=== PATIENT | female | born 1955 | race Caucasian/White ===

== ENCOUNTER → 2016-11-09 | Outpatient (CLI) | payer BC ==
--- NOTE | 2016-11-11 08:52 | MM ---
Reason for exam: screening (asymptomatic). Last mammogram was performed 2 years and 8 months ago. History: Patient is postmenopausal. Took estrogen for 1 year 6 months beginning at age 37. Physical Findings: A clinical breast exam by your physician is recommended on an annual basis and results should be correlated with mammographic findings. MG Screening Mammo w CAD Bilateral CC and MLO view(s) were taken. Prior study comparison: March 03, 2014, bilateral MG screening mammo w CAD. March 01, 2013, bilateral digital screening mammo w/CAD. September 19, 2011, bilateral digital screening mammo w/CAD. There are scattered fibroglandular densities. No significant changes when compared with prior studies. ASSESSMENT: Negative, BI-RAD 1 RECOMMENDATION: Routine screening mammogram of both breasts in 1 year.
== END | disposition home or self-care (01) ==
LOC: RADMAMWWP 16:17
PROVIDERS: ATTEND Obstetrics & Gynecology
DX: Z12.31 Encounter for screening mammogram for malignant neoplasm of breast (principal)

== ENCOUNTER 2017-11-22 20:22 | Emergency (ER) | payer BC ==
[2017-11-22] MEDS ORDERED: HYDROcodone/APAP 7.5-325MG 1 EACH TAB PO ONE (20:36)
[2017-11-22] MEDS ORDERED: LIDOCAINE 1% INJ 10MG/ML (20 ML MDV) SQ ONE (20:36)
--- NOTE | 2017-11-22 20:42 | ED ---
Lower Extremity Injury HPI - General Chief Complaint: Extremity Injury, Lower Stated Complaint: Toe Pain Time Seen by Provider: 11/22/17 20:32 Source: patient, family, RN notes reviewed Mode of arrival: wheelchair Limitations: no limitations - History of Present Illness Initial Comments: This is a 62 yo female with presents today for cc of left 3rd toe deformity. Pt states that she was seen by the wound clinic earlier and told she was no supposed to weight bear on the right leg due to a recurring wound. Pt was then walking using the crutches at 8:15 when she began to lost her balance, she then used accidentally kicked the crutches with 3rd digit of the left foot causing immediately deformity laterally. Pt states they immediately got into the car and she was brought to the ER by her . pt admits to pain in the right third toe and tingling. Pt denies loss of sensation, but stated that she has decreased balance loss of sensation. - Related Data Home Medications Medication Instructions Recorded Confirmed Acetaminophen [Tylenol] 2 tab PO QID 11/17/17 11/22/17 Ascorbic Acid [Vitamin C with Jessica 2 tab PO DAILY 11/17/17 11/22/17 Hips] Cephalexin [Keflex] 1 cap PO QID 11/17/17 11/22/17 Cholecalciferol [Vitamin D3] 4 tab PO DAILY 11/17/17 11/22/17 Cyanocobalamin (Vitamin B-12) 2 tab PO DAILY 11/17/17 11/22/17 [Vitamin B12] Ergocalciferol (Vitamin D2) 1 cap PO WEEKLY 11/17/17 11/22/17 [Vitamin D2] Famotidine 2 tab PO DAILY 11/17/17 11/22/17 Ibuprofen [Motrin Ib] 3 tab PO TID 11/17/17 11/22/17 Levothyroxine Sodium [Synthroid] 1 tab PO DAILY 11/17/17 11/22/17 Magnesium Gluconate [Magonate] 2 tab PO DAILY 11/17/17 11/22/17 traZODone HCL 2 tab PO HS 11/17/17 11/22/17 Previous Rx's Medication Instructions Recorded HYDROcodone/APAP 7.5-325MG [[place] 1 tab PO Q6HR PRN 1 Days #4 tab 11/22/17 7.5-325] Allergies Allergy/AdvReac Type Severity Reaction Status Date / Time No Known Allergies Allergy Verified 11/22/17 20:32 Review of Systems ROS Statement: Those systems with pertinent positive or pertinent negative responses have been documented in the HPI. ROS Other: All systems not noted in ROS Statement are negative. Past Medical History Past Medical History: GERD/Reflux, Thyroid Disorder History of Any Multi-Drug Resistant Organisms: None Reported Past Surgical History: Adenoidectomy, Appendectomy, Joint Replacement, Tonsillectomy Additional Past Surgical History / Comment(s): right knee replacement 2000 Past Psychological History: No Psychological Hx Reported Smoking Status: Former smoker Past Alcohol Use History: Occasional Past Drug Use History: None Reported - Past Family History Father Family Medical History: Myocardial Infarction ([place]) Mother Family Medical History: Myocardial Infarction ([place]) General Exam - General Exam Comments Initial Comments: General: The patient is awake and alert, in no distress, and does not appear acutely ill. Eye: Pupils are equal, round and reactive to light, extra-ocular movements are intact. No nystagmus. There is normal conjunctiva bilaterally. No signs of icterus. Ears, nose, mouth and throat: There are moist mucous membranes and no oral lesions. Cardiovascular: There is a regular rate and rhythm. No murmur, rub or gallop is appreciated. Respiratory: Lungs are clear to auscultation, respirations are non-labored, breath sounds are equal. No wheezes, stridor, rales, or rhonchi. Musculoskeletal:s Gross deformity to the . Strength 5/5. Sensation intact. Pulses equal bilaterally 2+. Neurological: A&O x 3. CN II-XII intact, There are no obvious motor or sensory deficits. Coordination appears grossly intact. Speech is normal. Skin: Skin is warm and dry and no rashes or lesions are noted. Psychiatric: Cooperative, appropriate mood & affect, normal judgment. Limitations: no limitations Course Vital Signs 11/22/17 11/22/17 20:29 22:31 Temperature 98.2 F 97 F L Pulse Rate 89 80 Respiratory 20 18 Rate Blood Pressure 177/91 138/79 O2 Sat by Pulse 99 97 Oximetry Medical Decision Making - Medical Decision Making XR obtained of the right toes, revealing left third digit proximal phalanx displaced fracture, no dislocation. Pt was given norco for pain. Nerve block was performed and a closed reduction was performed. Pt tolerated procedure well. Repeat XR revealed satisfactory reduction. Pt neurovascularly intact. Compartments are soft and compressible. Toe eulalia taped to the 2nd digit of the left foot. Pt given disc of XR for orthopedic f/u tomorrow. Pt was instructed to call first thing in the morning for appointment with Dr. Griffin she verbalized understanding. Fracture may need surgical intervention, on nonemergenct basis. Pt given 4 tabs of norco for pain mgmt, she denied use of opiods, muscle relaxants or benzos at home and opioid start talking shit was discussed in great detail. pt understood risks and still wanted the rx for pain as needed. Pt d/c in stable condition after the case was discussed in detail with Dr. Stahl who reviewed XR in person and evaluated pt in person. Disposition Clinical Impression: Closed fracture of third toe of left foot Disposition: HOME SELF-CARE Condition: Good Instructions: Toe Fracture (ED) Additional Instructions: Please use medication as discussed. Please follow-up with orthopedic surgery in 1-2 days. Please return to emergency room if the symptoms increase or worsen or for any other concerns. Prescriptions: HYDROcodone/APAP 7.5-325MG [[place] 7.5-325] 1 tab PO Q6HR PRN 1 Days #4 tab PRN Reason: Pain Is patient prescribed a controlled substance at d/c from ED?: No Referrals: Ellis Martinez MD [Primary Care Provider] - 1-2 days Taj Anderson MD [STAFF PHYSICIAN] - 1-2 days Time of Disposition: 22:31
--- NOTE | 2017-11-22 21:12 | XR ---
EXAMINATION TYPE: XR foot complete LT DATE OF EXAM: 11/22/2017 COMPARISON: NONE HISTORY: Foot injury TECHNIQUE: 4 views FINDINGS: There is a fracture of the head of the proximal phalanx of the third toe. There is some flako berry deformity of the third toe. There is no dislocation. IMPRESSION: Angulated fracture of the proximal phalanx of the middle toe.
--- NOTE | 2017-11-22 22:10 | XR ---
EXAMINATION TYPE: XR toes LT DATE OF EXAM: 11/22/2017 COMPARISON: NONE HISTORY: Postreduction TECHNIQUE: 2 views FINDINGS: There is transverse fracture across the head of the proximal phalanx of the third toe. Ther e is significant improved alignment and apposition of the fragments compared to first exam. IMPRESSION: Satisfactory reduction of the third toe fracture.
[2017-11-22 22:32] VITALS: BP 138/79; PULSE 80; RESP 18; TEMP 97
--- NOTE | 2017-11-23 07:27 | CDI ---
Documentation Clarification OP Dear JACQUELINE Avalos/ Efren Oneill MD Please do addendum to ED report for missing procedure note of toe reduction performed. Thank you, Teo Britton Hardware Sales Assistant If you have any questions, please contact [employer] at [phone] [facility]
== END 2017-11-22 22:42 | disposition home or self-care (01) ==
LOC: EC 20:22
DX: S92.512A Displaced fracture of proximal phalanx of left lesser toe(s), initial encounter for closed fracture (principal); K21.9 Gastro-esophageal reflux disease without esophagitis; E07.9 Disorder of thyroid, unspecified; Z96.651 Presence of right artificial knee joint; Z87.891 Personal history of nicotine dependence; Z79.1 Long term (current) use of non-steroidal anti-inflammatories (NSAID); Z79.899 Other long term (current) drug therapy; W22.8XXA Striking against or struck by other objects, initial encounter; Y92.009 Unspecified place in unspecified non-institutional (private) residence as the place of occurrence of the external cause
CPT/HCPCS: 73630; 73660; 99283; 28515; J2001

== ENCOUNTER → 2017-12-28 | Outpatient (CLI) | payer BC ==
--- NOTE | 2017-12-29 12:14 | MM ---
Reason for exam: screening (asymptomatic). Last mammogram was performed 1 year and 2 months ago. History: Patient is postmenopausal. Took estrogen for 1 year 6 months beginning at age 37. Physical Findings: A clinical breast exam by your physician is recommended on an annual basis and results should be correlated with mammographic findings. MG Screening Mammo w CAD Bilateral CC and MLO view(s) were taken. Prior study comparison: November 09, 2016, bilateral MG screening mammo w CAD. March 03, 2014, bilateral MG screening mammo w CAD. The breast tissue is almost entirely fat. No significant changes when compared with prior studies. ASSESSMENT: Benign, BI-RAD 2 RECOMMENDATION: Routine screening mammogram of both breasts in 1 year.
== END | disposition home or self-care (01) ==
LOC: RADMAMWWP 15:23
PROVIDERS: ATTEND Obstetrics & Gynecology
DX: Z12.31 Encounter for screening mammogram for malignant neoplasm of breast (principal)
CPT/HCPCS: 77067

== ENCOUNTER → 2019-02-08 | Outpatient (CLI) | payer BC ==
--- NOTE | 2019-02-12 10:08 | MM ---
Reason for exam: screening (asymptomatic). Last mammogram was performed 1 year and 1 month ago. History: Patient is postmenopausal. Took estrogen for 1 year 6 months beginning at age 37. Physical Findings: A clinical breast exam by your physician is recommended on an annual basis and results should be correlated with mammographic findings. MG Screening Mammo w CAD Bilateral CC and MLO view(s) were taken. Prior study comparison: December 28, 2017, bilateral MG screening mammo w CAD. November 09, 2016, bilateral MG screening mammo w CAD. There are scattered fibroglandular densities. No significant changes when compared with prior studies. ASSESSMENT: Negative, BI-RAD 1 RECOMMENDATION: Routine screening mammogram of both breasts in 1 year.
== END | disposition home or self-care (01) ==
LOC: RADMAMWWP 16:29
PROVIDERS: ATTEND Obstetrics & Gynecology
DX: Z12.31 Encounter for screening mammogram for malignant neoplasm of breast (principal)
CPT/HCPCS: 77067

== ENCOUNTER → 2019-04-17 | Outpatient (CLI) | payer BC ==
--- NOTE | 2019-04-17 08:54 | CT ---
EXAMINATION TYPE: CT lower leg RT w con DATE OF EXAM: 04/17/2019 COMPARISON: Right leg x-ray March 29, 2019 HISTORY: Staph infection Rt lower leg, not healing, leg abscess per order CT DLP: 837.1 mGycm Automated exposure control for dose reduction was used. CONTRAST: Performed with IV Contrast, patient injected with 100 mL of Isovue 300. FINDINGS: Moderate to severe diffuse subcutaneous edema begins mid leg level extending to distal leg and ankle level. There is focal loss of normal fat plane anteriorly near image 114 with low dense area suspecte d fluid and multiple rounded hypodensities could reflect phleboliths or soft tissue foreign bodies. T here is no well-formed drainable fluid collection or abscess identified. There is additional area of more focal fluid posterior to the lateral malleolus near image 127 but it remains ill-defined. Focal fluid extends to the skin surface at both levels. Incidental subchondral cystic change at the subtalar joint. Mild to moderate narrowing and spurring a t the caval navicular joint. Partial visualization of metallic hardware from total knee arthroplasty. Ankle mortise symmetry is preserved. Lisfranc joints are maintained. IMPRESSION: Moderate to severe diffuse subcutaneous edema with areas of focal ill-defined fluid exten ding to skin surface. No well-formed drainable abscess. No obvious large focal ulceration.
== END | disposition home or self-care (01) ==
LOC: RADCTMAIN 07:05
PROVIDERS: ATTEND Internal Medicine Infectious Disease
DX: R60.0 Localized edema (principal); J30.1 Allergic rhinitis due to pollen
CPT/HCPCS: 73701; Q9967

== ENCOUNTER → 2019-11-18 | Outpatient (CLI) | payer BC ==
[~2019-11-18] MED LIST: AMINOPHYLLINE 500 MG/20 ML VIAL IV ONE; REGADENOSON 0.4 MG/5 ML SYRINGE IV ONE
--- NOTE | 2019-11-18 13:39 | EST ---
EXERCISE STRESS AGE: 64 SEX: F HT: 67" WT: 260 lbs. PROTOCOL: Lexiscan Cardiolite STAGE: DURATION OF EXERCISE: HEART RATE REST: 72 BLOOD PRESSURE REST: 167/85 MAXIMUM HEART RATE ACHIEVED: 94 MAXIMUM BLOOD PRESSURE: 161/85 85% MPHR: 134 100% MPHR: 158 METS: INDICATIONS: Abnormal EKG. CLINICAL INFORMATION: Baseline rhythm is sinus mechanism, rate is 72, normal axis and intervals, normal echocardiogram. Baseline blood pressure 167/81 mmHg. Patient received an injection of Lexiscan. Electrocardiograph monitoring revealed no evidence of diagnostic ischemic ST deviation. Cardiolite was injected per protocol. CONCLUSION: 1. Nondiagnostic electrocardiograph stress testing. 2. Nuclear images will be reported separately. MMODL / IJN: [id number] /
--- NOTE | 2019-11-18 15:39 | NM ---
EXAMINATION TYPE: NM stress lexiscan cardiolite DATE OF EXAM: 11/18/2019 COMPARISON: NONE HISTORY: Fatigue TECHNIQUE: After the intravenous administration of 10.48 mCi Tc 99m Sestamibi - Cardiolite resting S PECT images acquired 80 minutes post injection. The patient received 0.4mg Lexiscan, 26.5 mCi Tc 99m Sestamibi - Stress images obtained [address] injection FINDINGS: Review of stress and rest SPECT images demonstrates no distinct perfusion abnormality on polar maps o r semiquantitative segmental scarring. Gated analysis shows normal wall motion with an estimated lef t ventricular ejection fraction of 64 %. TID 1.05 IMPRESSION: 1. No scintigraphic evidence for reversible ischemia. 2. Ejection fraction 64%.
== END | disposition home or self-care (01) ==
LOC: RADNMMAIN 08:43
PROVIDERS: ATTEND Family Medicine
DX: R53.83 Other fatigue (principal)
CPT/HCPCS: 93017; 78452; A9500; J2785

== ENCOUNTER → 2020-03-11 | Outpatient (CLI) | payer BC ==
--- NOTE | 2020-03-11 22:51 | BD ---
EXAMINATION TYPE: Axial Bone Density DATE OF EXAM: 03/11/2020 COMPARISON: Prior DEXA bone scan 2014 CLINICAL HISTORY: Postmenopausal female. Height: 67 Weight: 248.7 FRAX RISK QUESTIONS: Alcohol (3 or more units per day): no Family History (Parent hip fracture): no Glucocorticoids (More than 3mos): no (Ex: prednisone, prednisolone, methylprednisolone, dexamethasone, and hydrocortisone). History of Fracture in Adulthood: no Secondary Osteoporosis: 1. Type 1 Diabetes: no 2. Hyperthyroidism: no 3. Menopause before 45:yes 4. Malnutrition: no 5. Chronic liver disease: no Rheumatoid Arthritis: no Current Tobacco Use: no RISK FACTORS HISTORY OF: Family History of Osteoporosis: no Active: yes Diet low in dairy products/other sources of calcium: yes Postmenopausal woman: age 37 Lost more than 2 inches in height since high school: yes MEDICATIONS: Thyroid Medications: thyroid How Lon years Additional History: EXAM MEASUREMENTS: Bone mineral densitometry was performed using the [email or web address] System. Bone mineral density as measured about the Lumbar spine is: ----- L1-L4(G/cm2): 1.159 T Score Values are as follows: ----- L2: -0.5 ----- L3: 0.7 ----- L4: -0.3 ----- L1-L4: -0.2 Bone mineral density has: increased 6.5 % since study of: 01.28.2015 Bone mineral density about the R hip (g/cm2): 0.800 Bone mineral density about the L hip (g/cm2): 0.798 T Score values are as follows: -----R Neck: -1.7 -----L Neck: -1.7 -----R Total: -1.6 -----L Total: -1.3 Bone mineral density has: decreased -8.5 % since study of: 01.28.2015 IMPRESSION: Osteopenia (T Score between -2.5 and -1) remains present in bilateral hips. There remains slightly increased risk of fracture and the patient may be considered for treatment. Re-Screen 2-5 years. NOTE: T-SCORE=SD OF THE YOUNG ADULT MEAN.
== END | disposition home or self-care (01) ==
LOC: RADBDWWP 15:52
PROVIDERS: ATTEND Obstetrics & Gynecology
DX: M85.80 Other specified disorders of bone density and structure, unspecified site (principal)
CPT/HCPCS: 77080

== ENCOUNTER → 2020-04-06 | Outpatient (CLI) | payer BC ==
--- NOTE | 2020-04-08 10:00 | MM ---
Reason for exam: screening (asymptomatic). Last mammogram was performed 1 year and 2 months ago. History: Patient is postmenopausal. Took estrogen for 1 year 6 months beginning at age 37. Physical Findings: A clinical breast exam by your physician is recommended on an annual basis and results should be correlated with mammographic findings. MG Screening Mammo w CAD Bilateral CC and MLO view(s) were taken. Prior study comparison: February 08, 2019, bilateral MG screening mammo w CAD. December 28, 2017, bilateral MG screening mammo w CAD. The breast tissue is extremely dense which could obscure a lesion on mammography. Extensive secretory, oil cyst and scattered punctate calcifications. 1.3cm mass 9-10 o'clock posterior right breast is larger. ASSESSMENT: Incomplete: need additional imaging evaluation, BI-RAD 0 RECOMMENDATION: Ultrasound of the right breast. (7-11 o'clock) [facility] will attempt to contact patient to return for ultrasound.
== END | disposition home or self-care (01) ==
LOC: RADMAMWWP 15:48
PROVIDERS: ATTEND Obstetrics & Gynecology
DX: Z12.31 Encounter for screening mammogram for malignant neoplasm of breast (principal)
CPT/HCPCS: 77067

== ENCOUNTER → 2020-04-10 | Outpatient (CLI) | payer BC | END | disposition home or self-care (01) | LOC: RADUSWWP 14:17 | PROVIDERS: ATTEND Obstetrics & Gynecology | DX: Z53.9 Procedure and treatment not carried out, unspecified reason (principal) ==

== ENCOUNTER → 2020-12-02 | Outpatient (CLI) | payer BC ==
--- NOTE | 2020-12-02 15:57 | XR ---
EXAMINATION TYPE: XR ankle complete bilateral DATE OF EXAM: 12/02/2020 COMPARISON: NONE HISTORY: Pain FINDINGS: Three views of bilateral ankle demonstrate the ankle mortise to be intact and symmetric. The joint s paces are preserved. The osseous structures are intact. Chronic appearing deformity of the posterio r margin of the tibia. Large plantar calcaneal spur. Small plantar calcaneal spur on the right. Pes p lanus deformity noted bilaterally. IMPRESSION: 1. Large left and small right plantar calcaneal spur..
--- NOTE | 2020-12-02 15:59 | XR ---
EXAMINATION TYPE: XR foot complete bilateral DATE OF EXAM: 12/02/2020 COMPARISON: NONE HISTORY: Pain TECHNIQUE: Three views of bilateral foot are submitted. FINDINGS: The osseous structures are intact. Mild diffuse osteopenia. Mild narrowing of the DIP joints of all d igits bilaterally and there is moderate hypertrophic arthropathy of bilateral first MTP joint greater on the right. No erosive changes. Large left plantar calcaneal spur noted and tiny right plantar demi caneal spur. IMPRESSION: 1. Arthropathy. 2. Calcaneal spurs.
--- NOTE | 2020-12-02 16:02 | XR ---
EXAMINATION TYPE: XR hand complete bilateral DATE OF EXAM: 12/02/2020 COMPARISON: NONE HISTORY: Pain TECHNIQUE: Three views are submitted. FINDINGS: The osseous structures are intact. The joint spaces are preserved and there is no acute fracture or dislocation. Chondrocalcinosis noted involving the right wrist. There is a deformity of the left sca phoid. Bilateral narrowing of the radiocarpal joint. Bilateral question widening of the scapholunate joint bilaterally. IMPRESSION: 1. Chondrocalcinosis noted involving the wrist joint on the right. Bilateral narrowing of the radioca rpal joint. Mild widening of the scapholunate joint could be evaluated with MRI. 2. Deformity involving the scaphoid on the left for which dedicated wrist series with scaphoid view r ecommended.
--- NOTE | 2020-12-02 16:04 | XR ---
EXAM TYPE: LUMBAR SPINE X RAY SERIES COMPARISON: NONE HISTORY: Pain TECHNIQUE: 4 views are submitted. FINDINGS: Alignment is anatomic. The pedicles are intact. The transverse processes are intact. There is no s pondylolysis or spondylolisthesis. Diffuse osteopenia. Moderate degenerative disc disease levels L2- S1 with facet arthropathy. Minimal anterolisthesis L5 on S1. IMPRESSION: 1. Multilevel moderate degenerative disc disease with facet arthropathy as discussed above..
--- NOTE | 2020-12-02 16:04 | XR ---
EXAMINATION TYPE: XR pelvis AP view DATE OF EXAM: 12/02/2020 COMPARISON: NONE HISTORY: Pain The osseous structures are intact and the joint spaces are preserved. No acute fracture is seen. Vi sualized bowel gas pattern is nonspecific. Sclerosis involving the SI joints. Hypertrophic changes o f the acetabulum. IMPRESSION: 1. Correlate for femoral acetabular impingement. Mild bilateral symmetric sacroiliitis not excluded..
--- NOTE | 2020-12-02 16:06 | XR ---
EXAMINATION TYPE: XR wrist complete BILATERAL DATE OF EXAM: 12/02/2020 COMPARISON: NONE HISTORY: Pain TECHNIQUE: Four views submitted. FINDINGS: There is bilateral narrowing of the radiocarpal joint with moderate changes on the right and severe c hanges on the left resulting in deformity of the scaphoid. Slight widening of the scapholunate joint suspected bilaterally. No erosive changes. No acute fracture or dislocation. Chondrocalcinosis involv ing the ulnar carpal joint or triangular fibrocartilage noted on the right. IMPRESSION: 1. Arthropathy of the radiocarpal joint bilaterally greater on the left as discussed above with defor mity of the scaphoid which appears to be chronic. Recommend MRI to exclude osteonecrosis of the left scaphoid.
== END | disposition home or self-care (01) ==
LOC: RADXRMAIN 14:21
PROVIDERS: ATTEND Nurse Practitioner Family
DX: M77.31 Calcaneal spur, right foot (principal); M77.32 Calcaneal spur, left foot; M19.071 Primary osteoarthritis, right ankle and foot; M19.072 Primary osteoarthritis, left ankle and foot; M11.231 Other chondrocalcinosis, right wrist; M51.37 Other intervertebral disc degeneration, lumbosacral region; M47.817 Spondylosis without myelopathy or radiculopathy, lumbosacral region; M43.17 Spondylolisthesis, lumbosacral region; R10.2 Pelvic and perineal pain; M19.031 Primary osteoarthritis, right wrist; M19.032 Primary osteoarthritis, left wrist
CPT/HCPCS: 72110; 72170

== ENCOUNTER → 2021-01-06 | Outpatient (CLI) | payer BC ==
--- NOTE | 2021-01-07 07:03 | MR ---
EXAMINATION TYPE: MR lumbar spine wo con DATE OF EXAM: 01/06/2021 COMPARISON: Lumbar spine x-ray December 02, 2020 HISTORY: LBP, radiculopathy. Intervertebral disc disorder. TECHNIQUE: Multiplanar, multisequence imaging of the lumbar spine is performed without IV contrast. FINDINGS: Sagittal images of the lumbar spine show vertebral body heights and alignment to appear sat isfactory. Multilevel disc desiccation. Mild to moderate disc space narrowing L2-L3 level. The conus medullaris is normal in position and signal ending mid L1 level. 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 Small hemangioma posterior T12 level. Axial images show T12-L1 and L1-L2 levels to appear within normal limits. Axial images at the L2-L3 level show mild to moderate broad disc bulge effacing the anterior thecal s ac and mild facet degenerative changes bilaterally. There is mild to moderate right greater than left bilateral anterior inferior neural foraminal narrowing. Encroachment along the anterior aspect right L2 nerve is felt present sagittal image 12. Axial images at the L3-L4 level show mild to moderate facet degenerative changes and ligamentum flavu m hypertrophy effacing the posterior lateral thecal sac. There is mild broad disc bulge with left for aminal disc protrusion component minimally effacing anterior thecal sac. There is mild to moderate le ft sided neural foraminal narrowing encroaching near the exiting left L3 nerve sagittal image 4. Van nt right-sided neural foramina. Axial images at the L4-L5 level shows central disc protrusion with annular tear. There is mild efface ment anterior thecal sac. There is mild bilateral anterior inferior neural foraminal narrowing. Axial images at the L5-S1 level show moderate to advanced facet arthropathy bilaterally. Spinal canal preserved. Patent bilateral neural foramina. Paraspinal muscle bulk is maintained. There are central benign thin-walled parapelvic cysts in the le ft kidney. IMPRESSION: Multilevel degenerative changes in the mid to lower lumbar spine as detailed above.
== END | disposition home or self-care (01) ==
LOC: RADMRIMAIN 18:34
PROVIDERS: ATTEND Family Medicine
DX: M47.27 Other spondylosis with radiculopathy, lumbosacral region (principal); M51.16 Intervertebral disc disorders with radiculopathy, lumbar region; M99.73 Connective tissue and disc stenosis of intervertebral foramina of lumbar region; D18.09 Hemangioma of other sites
CPT/HCPCS: 72148

== ENCOUNTER → 2021-02-04 | Outpatient (CLI) | payer BC ==
[2021-02-04 08:02] VITALS: BP 149/99; PULSE 96; RESP 18; TEMP 96.2
--- NOTE | 2021-02-04 08:26 | P.PAINCN ---
History of Present Illness - Reason for Consult Consult date: 02/04/21 - Chief Complaint Lumbar back pain - History of Present Illness Mrs. Mccormick is a 65 year old pleasant female patient came to [facility] pain management clinic for initial evaluation. Patient described pain started- ongoing pain for last few years. Patient had no interventional procedures in the past. She never tried any physical therapy, chiropractic therapy, and massage therapy. Patient described pain as aching, sharp, throbbing type of pain. Patient rated pain 2 out of 10 in severity. Which may very her pain level from 2-5 out of 10 in severity. Patient also complaining independent pain in her bilateral foot area. Patient denied any pain radiating from lumbar lower extremities at this time. Pain increases sometime with activities, and standing, walking, sitting, bending forward, and lifting. Pain decreases with medications and weight loss. Patient lost 15 pounds of weight in 3 months duration, patient is still working to lose more weight. Overall patient act ivities- stable . Pain medications, and weight loss helping to some extent. Because of the pain patient is feeling lack of sleep and interest and energy sometimes. Denied any bowel or bladder problems. Patient denies any adverse effects to medications. Not using any walking aids for walking. Patient denied any suicidal or homicidal ideations intent or plan. At this time patient also denies any auditory or visual hallucinations. There are no signs of narcotic diversion/misuse/overuse and no new-onset weakness, bowel/bladder incontinence, saddle anesthesia, or no red flag symptoms. Review of Systems All systems: negative Constitutional: Denies chills, Denies fever Eyes: denies blurred vision, denies pain Ears, nose, mouth and throat: Denies headache, Denies sore throat Cardiovascular: Denies chest pain, Denies shortness of breath Respiratory: Denies cough Gastrointestinal: Denies abdominal pain, Denies diarrhea, Denies nausea, Denies vomiting Genitourinary: Denies dysuria, Denies hematuria Musculoskeletal: Reports low back pain, Reports morning stiffness, Denies myalgias Integumentary: Denies pruritus, Denies rash Neurological: Denies numbness, Denies weakness Psychiatric: Denies anxiety, Denies depression Endocrine: Denies fatigue, Denies weight change Past Medical History Past Medical History: GERD/Reflux, Thyroid Disorder Additional Past Medical History / Comment(s): prolapsed bladder History of Any Multi-Drug Resistant Organisms: None Reported Past Surgical History: Adenoidectomy, Appendectomy, Joint Replacement, Tonsillectomy Additional Past Surgical History / Comment(s): right knee replacement 2000 Smoking Status: Former smoker - Past Family History Father Family Medical History: Myocardial Infarction ([place]) Mother Family Medical History: Myocardial Infarction ([place]) Medications and Allergies Home Medications Medication Instructions Recorded Confirmed Type Ergocalciferol (Vitamin D2) 1 cap PO Q7D 11/17/17 03/29/19 History [Vitamin D2] Famotidine 40 mg PO BID 11/17/17 03/29/19 History Levothyroxine Sodium [Synthroid] 150 mcg PO DAILY 11/17/17 03/29/19 History traZODone HCL 300 mg PO HS 11/17/17 03/29/19 History Meloxicam [Mobic] 15 mg PO HS 03/29/19 03/29/19 History Melatonin 3 mg PO HS PRN tablet 04/02/19 Rx cefTRIAXone [Rocephin] 2 gm IVPB ONCE vial 04/02/19 Rx Allergies Allergy/AdvReac Type Severity Reaction Status Date / Time No Known Allergies Allergy Verified 03/29/19 12:31 Physical Exam Vitals: Vital Signs Temp Pulse Resp BP Pulse Ox 02/04/21 07:54 96.2 F L 96 18 149/99 94 L General: Well-developed, well-nourished, no acute distress HEENT: Normocephalic, and atraumatic Neck: Supple, no neck swelling Psychiatric: Appropriate mood, and affect [employer]TER BLOWER: No focal neurological deficits Musculoskeletal: Upper extremity: Normal strength, and range of motion. Sensation grossly intact Lower extremity: Normal strength, and normal range of motion. Lumbar spine: Paravertebral tenderness: positive Lumbar facet load test : positive Sacroiliac joint tenderness: Positive Thigh thrust test: Positive SI joint compression test: Positive Fabere test: Positive Multiple trigger points positive lower lumbar area. Results Results: Lumbar spine MRI done on December, showed Multilevel degenerative changes, and facet arthropathy. No neural foramina, and no lumbar spinal canal stenosis. Neural foramina stenosis at L3 level. Assessment and Plan Assessment: Lumbar spondylosis without myelopathy Myofascial pain syndrome/fibromyalgia Sacroiliac joint dysfunction obesity Osteoarthritis Plan: #1 Diagnoses, prognosis, and multiple treatment options including but not limited to physical therapy, interventional therapy, adjunct medication therapy, narcotic medication, and surgical options were discussed with the patient. And all questions were answered to the patient's satisfaction. #2 treatment plan agreement : Patient was thoroughly discussed regarding the treatment options, alternatives, and importance of exercises as tolerated. Patient clearly understood. #3 Patient was counseled on importance of regular exercise. Including lucy chi, aerobic exercises as tolerated. Which helps for chronic pain, and overall well- being. Patient also counseled regarding importance of weight control rolling chronic pain, and overall other health issues. By altering diet habits, minimizing sugar intake, and processed foods helps in minimizing Inflammation. Also discussed with the patient regarding intermittent fasting. #4 investigations: MAPS- reviewed , urine drug test- not done #5 diagnostic tests: None #6 consultation : Patient refused for physical therapy # 7 interventional procedures: None . #8 medications #1 continue medications from primary care physician as needed Medication side effects, complications, long-term consequences discussed with the patient. #9 morphine milligrams equivalents dose ( MME) per day: 0 from the pain clinic. # 10 : percussion massage device discussed with the patient and recommended to try. #11 disposition: scheduled to follow up with pain clinic as needed in future Time with Patient: Less than 30 PQRS Measure Charge Sheet Measure #130: Documentation of Current Meds in Medical Chart: Patient's medicati ons documented in chart Measure #226: Tobacco Use: Screen & Cessation Intervention: Pt not a tobacco user Measure #111: Pneumonia Vaccination: Pneumococcal vaccine NOT administered or previously given Measure #47: Advance Care Plan: Advance care planning discussed & documented, pt chose/unable to give Measure #412: Opioid Treatment Agreement: No documentation of signed opioid treatment agreement Measure #408: Opioid Therapy Follow-up Evaluation: Patient had NO f/u eval m inimum every 3 months during opioid therapy Measure #317: Preventitive Care & Scrn High Bld Press & F/U: Normal blood pressure, f/u not required Measure #128: Body Mass Index (BMI) Screening & Follow-up: BMI documented ABOVE normal parameters - f/u documented Measure #131: Pain Assessment & Follow-up: Pain positive & plan documented Measure #431: Unhealthy Alcohol Use Preventative Care & Scrn: Patient not identified as an unhealthy alcohol user Mode of Arrival: Ambulatory - Pain Location Lower Back Non-Pharmacological Interventions: Heat, Ice, Inactivity Pharmacological Interventions: Medication, PRN Medication PQRS Narrative: Smoking Status Never smoker Blood Pressure 149/99 Pain Intensity [Lower Back] 2 Scale Used Numeric (1 - 10) Hx Alcohol Use (MH) Yes: Occasional Home Medications: Ambulatory Orders Ergocalciferol (Vitamin D2) [Vitamin D2] 1 cap PO Q7D 11/17/17 Famotidine 40 mg PO BID 11/17/17 Levothyroxine Sodium [Synthroid] 150 mcg PO DAILY 11/17/17 traZODone HCL 300 mg PO HS 11/17/17 Meloxicam [Mobic] 15 mg PO HS 03/29/19 Melatonin 3 mg PO HS PRN tablet 04/02/19 cefTRIAXone [Rocephin] 2 gm IVPB ONCE vial 04/02/19
== END ==
LOC: PNWHC3 07:33
DX: M47.816 Spondylosis without myelopathy or radiculopathy, lumbar region (principal); M79.18 Myalgia, other site; M53.3 Sacrococcygeal disorders, not elsewhere classified; E66.9 Obesity, unspecified; M19.90 Unspecified osteoarthritis, unspecified site; Z87.891 Personal history of nicotine dependence; Z68.38 Body mass index [BMI] 38.0-38.9, adult
CPT/HCPCS: 99211

== ENCOUNTER 2021-03-15 08:50 | Emergency (ER) | payer BC ==
[2021-03-15 09:02] VITALS: RESP 18
--- NOTE | 2021-03-15 09:30 | XR ---
EXAMINATION TYPE: XR chest 2V DATE OF EXAM: 03/15/2021 COMPARISON: NONE HISTORY: Upper respiratory infection. TECHNIQUE: Frontal and lateral views of the chest are obtained. FINDINGS: There is no focal air space opacity, pleural effusion, or pneumothorax seen. The cardiac silhouette size is within normal limits. Multilevel spurring in the thoracic spine. IMPRESSION: No acute pulmonary process.
[2021-03-15] MEDS ORDERED: ACETAMINOPHEN TAB 325 MG TAB PO STA (09:32)
--- NOTE | 2021-03-15 10:07 | ED ---
URI HPI - General Chief Complaint: Upper Respiratory Infection Stated Complaint: cough Time Seen by Provider: 03/15/21 09:05 Source: patient, RN notes reviewed Mode of arrival: ambulatory Limitations: no limitations - History of Present Illness Initial Comments: Patient is a 66-year-old female that presents to the emergency department complaining of a cough and sinus congestion. She notes she recently got her Covid booster shot on Monday. She notes that since then she's had this nagging cough that is nonproductive. She notes she hasn't been tested for Covid over 5- 6 months. Patient was otherwise well-appearing in no apparent distress. She denied any chest pain nausea vomiting diarrhea constipation fever fatigue chills. - Related Data Home Medications Medication Instructions Recorded Confirmed Ergocalciferol (Vitamin D2) 1 cap PO Q7D 11/17/17 02/04/21 [Vitamin D2] Famotidine 40 mg PO BID 11/17/17 02/04/21 Levothyroxine Sodium [Synthroid] 150 mcg PO DAILY 11/17/17 02/04/21 Meloxicam [Mobic] 15 mg PO HS 03/29/19 02/04/21 DULoxetine HCL [Cymbalta] 60 mg PO BID 02/04/21 02/04/21 Doxepin [SINEquan] 50 mg PO HS 02/04/21 02/04/21 Sucralfate [Carafate] 1 gm PO Q6HR 02/04/21 02/04/21 Allergies Allergy/AdvReac Type Severity Reaction Status Date / Time No Known Allergies Allergy Verified 03/15/21 08:58 Review of Systems ROS Statement: Those systems with pertinent positive or pertinent negative responses have been documented in the HPI. ROS Other: All systems not noted in ROS Statement are negative. Past Medical History Past Medical History: GERD/Reflux, Thyroid Disorder Additional Past Medical History / Comment(s): prolapsed bladder History of Any Multi-Drug Resistant Organisms: None Reported Past Surgical History: Adenoidectomy, Appendectomy, Joint Replacement, Tonsillectomy Additional Past Surgical History / Comment(s): right knee replacement 2000 Past Anesthesia/Blood Transfusion Reactions: No Reported Reaction Past Psychological History: No Psychological Hx Reported Smoking Status: Former smoker Past Alcohol Use History: Occasional Past Drug Use History: None Reported - Past Family History Father Family Medical History: Myocardial Infarction ([place]) Mother Family Medical History: Myocardial Infarction ([place]) General Exam Limitations: no limitations General appearance: alert, in no apparent distress, obese Head exam: Present: atraumatic, normocephalic, normal inspection Eye exam: Present: normal appearance, PERRL, EOMI. Absent: scleral icterus, conjunctival injection, periorbital swelling ENT exam: Present: normal exam, mucous membranes moist Neck exam: Present: normal inspection Respiratory exam: Present: normal lung sounds bilaterally. Absent: respiratory distress, wheezes, rales, rhonchi, stridor Cardiovascular Exam: Present: regular rate, normal rhythm, normal heart sounds. Absent: systolic murmur, diastolic murmur, rubs, gallop, clicks Extremities exam: Present: normal inspection, full ROM, normal capillary refill. Absent: tenderness, pedal edema, joint swelling, calf tenderness Neurological exam: Present: alert, oriented X3 Psychiatric exam: Present: normal affect, normal mood Skin exam: Present: warm, dry, intact, normal color. Absent: rash Course Vital Signs 03/15/21 08:58 Temperature 98.7 F Pulse Rate 112 H Respiratory 18 Rate Blood Pressure 155/84 O2 Sat by Pulse 95 Oximetry Medical Decision Making - Medical Decision Making 66-year-old female with cough and congestion, recent booster vaccine. Covid test, chest x-ray ordered. Covid test positive. Chest x-ray shows no acute pulmonary process. Patient does meet criteria for monoclonal antibodies and wishes to undergo infusion. Patient is agreeable with discharge home after infusion. 650 mg of Tylenol ordered for headache. Case discussed with Dr. Reeder, patient discharge home after infusion. - Lab Data Lab Results 03/15/21 Range/Units 09:10 Coronavirus (PCR) Detected A (Not Detectd) - Radiology Data Radiology results: report reviewed, image reviewed Chest x-ray: No acute pulmonary process. Disposition Clinical Impression: COVID Disposition: HOME SELF-CARE Condition: Stable Instructions (If sedation given, give patient instructions): Coronavirus Disease 2019 (COVID-19) Additional Instructions: Please return to the Emergency Department if symptoms worsen or any other concerns. Follow-up with primary care 1-2 days. Take Tylenol Motrin alternating every 3 hours as needed for fever aches pains and headaches. Can take [id number] cough medicine for cough. For postnasal drip can use Flonase and Claritin and Pepcid. Is patient prescribed a controlled substance at d/c from ED?: No Referrals: Ellis Martinez MD [Primary Care Provider] - 1-2 days Time of Disposition: 10:07
[2021-03-15] MEDS ORDERED: SODIUM CHLORIDE 0.9% 50 ML IVPB ONE (10:30)
[2021-03-15] MEDS ORDERED: BAMLANIVIMAB (EUA) 700 MG, ETESEVIMAB (EUA) 1,400 MG in SODIUM CHLORIDE 0.9% 50 ML IVPB ONE (11:00)
[2021-03-15 11:47] VITALS: BP 150/88; PULSE 94; TEMP 98.8
== END 2021-03-15 11:53 | disposition home or self-care (01) ==
LOC: EC 08:50
DX: U07.1 COVID-19 (principal); K21.9 Gastro-esophageal reflux disease without esophagitis; E07.9 Disorder of thyroid, unspecified; Z90.49 Acquired absence of other specified parts of digestive tract; Z87.891 Personal history of nicotine dependence
CPT/HCPCS: 99283; M0245; 71046; 87635

== ENCOUNTER → 2021-06-18 | Outpatient (CLI) | payer BC ==
--- NOTE | 2021-06-22 10:08 | MM ---
Reason for exam: screening (asymptomatic). Last mammogram was performed 1 year and 2 months ago. History: Patient is postmenopausal and is of Ashkenazi Catholic descent. Took estrogen for 1 year 6 months beginning at age 37. Physical Findings: A clinical breast exam by your physician is recommended on an annual basis and results should be correlated with mammographic findings. MG Screening Mammo w CAD Bilateral CC and MLO view(s) were taken. Prior study comparison: April 06, 2020, bilateral MG screening mammo w CAD. February 08, 2019, bilateral MG screening mammo w CAD. There are scattered fibroglandular densities. There is no discrete abnormality. ASSESSMENT: Negative, BI-RAD 1 RECOMMENDATION: Routine screening mammogram of both breasts in 1 year.
== END | disposition home or self-care (01) ==
LOC: RADMAMWWP 15:20
PROVIDERS: ATTEND Obstetrics & Gynecology
DX: Z12.31 Encounter for screening mammogram for malignant neoplasm of breast (principal); Z78.0 Asymptomatic menopausal state
CPT/HCPCS: 77067

== ENCOUNTER → 2022-06-21 | Outpatient (CLI) | payer MEDICARE ==
--- NOTE | 2022-06-21 11:27 | BD ---
EXAMINATION TYPE: Axial Bone Density DATE OF EXAM: 06/21/2022 CLINICAL HISTORY: 67 years old Female. ICD-10 CODE: M85.88 DISORDER OF BONE Comparison: Prior DEXA bone scan 2019 Height: 65.5 Weight: 251 FRAX RISK QUESTIONS: Secondary Osteoporosis: yes 3. Menopause before 45: yes 37 Rheumatoid Arthritis: no RISK FACTORS HISTORY OF: Family History of Osteoporosis: no Active: yes Diet low in dairy products/other sources of calcium: yes Postmenopausal woman: yes Lost more than 2 inches in height since high school: yes was 70 Frequent falls: no Poor Health: no MEDICATIONS: Thyroid Medications: yes Which medication: Synthroid How Lon+ years Additional Medications: yes Reflux, hbp, Duloxetine HCl, sleeping, calcium, Vit D EXAM MEASUREMENTS: Bone mineral densitometry was performed using the [employer] System. Bone mineral density as measured about the Lumbar spine is: ----- L1-L4(G/cm2): 1.116 T Score Values are as follows: ----- L1: -1.3 ----- L2: -0.7 ----- L3: -0.3 ----- L4: -0.1 ----- L1-L4: -0.5 Z Score Values are as follows: ----- L1: -0.9 ----- L2: -0.2 ----- L3: 0.1 ----- L4: 0.3 ----- L1-L4: -0.1 Bone mineral density has: Decreased -3.7% since study of: 03/11/2020 Bone mineral density about the R hip (g/cm2): 0.766 Bone mineral density about the L hip (g/cm2): 0.789 T Score values are as follows: -----R Neck: -2.0 -----L Neck: -2.0 -----R Total: -1.9 -----L Total: -1.7 Z Score values are as follows: -----R Neck: -1.3 -----L Neck: -1.3 -----R Total: -1.6 -----L Total: -1.4 Bone mineral density has: Decreased -5.6% since study of: 03/11/2020 FRAX%s: The graph provided illustrates a 9.5% chance for a major osteoporotic fx and a 1.4% chance fo r the hips probability for fx in 10 years time. IMPRESSION: Osteopenia (T Score between -2.5 and -1) is redemonstrated. There is slightly increased risk of fracture and the patient may be considered for treatment. Re-Screen 2-5 years. NOTE: T-SCORE=SD OF THE YOUNG ADULT MEAN.
--- NOTE | 2022-06-22 09:50 | MM ---
Reason for Exam: Screening (asymptomatic). Last screening mammogram was performed 12 month(s) ago. Patient History: Menarche at age 12. First Full-Term at age 30. Postmenopausal. Ashkenazi Yarsani. Estrogen for 1 year, 6 months, from age 37 until age 38. Risk Values: Cynthia 5 year model risk: 2.0%. NCI Lifetime model risk: 7.6%. Prior Study Comparison: 02/08/2019 Bilateral Screening Mammogram, [facility]. 04/06/2020 Bilateral Screening Mammogram, [facility]. 06/18/2021 Bilateral Screening Mammogram, [facility]. Tissue Density: The breast tissue is almost entirely fat. Findings: Analyzed By CAD. There is no suspicious group of microcalcifications or new suspicious mass in either breast. Overall Assessment: Negative, BI-RAD 1 Management: Screening Mammogram of both breasts in 1 year. A clinical breast exam by your physician is recommended on an annual basis and results should be correlated with mammographic findings. [facility] will attempt to contact patient to return for supplemental views and ultrasound if indicated. Electronically signed and approved by: Phong Mo DO
== END | disposition home or self-care (01) ==
LOC: RADMAMWWP 10:00
PROVIDERS: ATTEND Obstetrics & Gynecology
DX: Z12.31 Encounter for screening mammogram for malignant neoplasm of breast (principal); M85.89 Other specified disorders of bone density and structure, multiple sites; Z78.0 Asymptomatic menopausal state
CPT/HCPCS: 77067; 77080

== ENCOUNTER → 2023-06-23 | Outpatient (CLI) | payer MEDICARE, BC ==
--- NOTE | 2023-06-26 08:18 | MM ---
Reason for Exam: Screening (asymptomatic). Last screening mammogram was performed 12 month(s) ago. Patient History: Menarche at age 12. First Full-Term at age 30. Postmenopausal. Patient has history of breast feeding. Ashkenazi Jain. Estrogen for 1 year, 6 months, from age 37 until age 38. Risk Values: Cynthia 5 year model risk: 2.0%. NCI Lifetime model risk: 7.3%. Prior Study Comparison: 11/09/2016 Bilateral Screening Mammogram, [facility]. 12/28/2017 Bilateral Screening Mammogram, [facility]. 02/08/2019 Bilateral Screening Mammogram, [facility]. 04/06/2020 Bilateral Screening Mammogram, [facility]. 06/18/2021 Bilateral Screening Mammogram, [facility]. 06/21/2022 Bilateral MG screening mammo w CAD, [facility]. Tissue Density: The breasts are almost entirely fatty. Findings: Analyzed By CAD. The pattern is symmetrical. No significant interval change is evident. Chronic nodularities in the posterior left breast. No suspicious groups of microcalcifications, spiculated or lobular masses, architectural distortion or other secondary signs of malignancy are mammographically apparent. Overall Assessment: Benign, BI-RAD 2 Management: Screening Mammogram of both breasts in 1 year. A negative mammogram report should not preclude additional follow up of suspicious palpable abnormalities. Patient should continue monthly self breast exam. A clinical breast exam by your physician is recommended on an annual basis and results should be correlated with mammographic findings. Electronically signed and approved by: Carlos Kendrick D.O. Radiologis
== END | disposition home or self-care (01) ==
LOC: RADMAMWWP 11:08
PROVIDERS: ATTEND Family Medicine
DX: Z12.31 Encounter for screening mammogram for malignant neoplasm of breast (principal); Z78.0 Asymptomatic menopausal state
CPT/HCPCS: 77067

== ENCOUNTER → 2023-07-03 | Outpatient (CLI) | payer MEDICARE, BC ==
--- NOTE | 2023-07-03 18:08 | CT ---
EXAMINATION TYPE: CT shoulder RT wo con DATE OF EXAM: 07/03/2023 COMPARISON: None HISTORY: COMPLETE ROTATOR CUFF TEAR CT DLP: 588.5 mGycm Automated exposure control for dose reduction was used. FINDINGS: There is severe osteoarthritic change of the glenohumeral joint with obliteration of the joint space, subchondral sclerosis and cyst formation in the humeral head and bony glenoid. There is marked super ior subluxation consistent with the provided history of chronic complete rotator cuff tear. There is mild degeneration of the AC joint. There is no acute fracture IMPRESSION: 1. SUPERIOR SUBLUXATION OF THE GLENOHUMERAL JOINT CONSISTENT WITH HISTORY OF COMPLETE CHRONIC ROTATOR CUFF TEAR. 2. MARKED DEGENERATION OF THE GLENOHUMERAL JOINT. MILD AC JOINT DEGENERATION. 3. NO ACUTE FRACTURE.
== END | disposition home or self-care (01) ==
LOC: RADCTMAIN 17:16
PROVIDERS: ATTEND Orthopaedic Surgery Sports Medicine
DX: S43.081A Other subluxation of right shoulder joint, initial encounter (principal); M75.121 Complete rotator cuff tear or rupture of right shoulder, not specified as traumatic; M19.011 Primary osteoarthritis, right shoulder; X58.XXXA Exposure to other specified factors, initial encounter

== ENCOUNTER 2023-08-31 05:48 | Day surgery (SDC) | payer MEDICARE, BC ==
[2023-08-25 15:06] VITALS: BMI 35.5
[~2023-08-31 05:48] MED LIST changes: +ACETAMINOPHEN TAB 500 MG TAB PO PRN; -AMINOPHYLLINE 500 MG/20 ML VIAL IV ONE; +GABAPENTIN 300 MG CAP PO PRN; +MELOXICAM 7.5 MG TAB PO PRN; -REGADENOSON 0.4 MG/5 ML SYRINGE IV ONE; +TRANEXAMIC 1,000 MG/100ML-NACL 1,000 MG in SALINE 1 100ML.BAG IVPB PRN
[2023-08-31] MEDS ORDERED: LIDOCAINE 1% (10MG/ML) FOR IV START INTRADERMA PRN (06:07)
[2023-08-31] MEDS: IV FLUID CONTINUATION 1,000 ML IV ONE (06:30)
[2023-08-31 06:40] LABS: Glucose,Whole Blood 104 mg/dL (70-110)
[2023-08-31] MEDS: MIDAZOLAM 2 MG/2 ML VIAL IVP ONE (07:00)
[2023-08-31] MEDS ORDERED: HYDROmorphone 0.5 MG/0.5 ML SYRINGE IVP PRN ×3 (07:00→09:27)
[2023-08-31] MEDS: ONDANSETRON 4 MG/2 ML VIAL IVP PRN (07:08)
[2023-08-31] MEDS: DEXAMETHASONE SOD PHOSPHATE 4 MG/ML 1 ML VIAL IV ONE (07:09)
[2023-08-31] MEDS: MIDAZOLAM 2 MG/2 ML VIAL IV PRN (07:10)
[2023-08-31] MEDS: LACTATED RINGERS 1,000 ML IV SCH ×2 (07:13→12:24)
[2023-08-31] MEDS: VANCOMYCIN 1,000 MG VIAL MISCELLANE ONE (08:22)
[2023-08-31] MEDS: ceFAZolin 1,000 MG in SODIUM CHLORIDE 0.9% 1,000 ML IRRIGATION ONE (08:23)
[2023-08-31] MEDS: LACTATED RINGERS 1,000 ML IV ONE (09:09)
--- NOTE | 2023-08-31 09:18 | P.ANPRN ---
Procedure Note - Anesthesia - Nerve Block Performed Right Interscalene Single Time Out Performed: Yes ([id number]) Date of Procedure: 08/31/23 Procedure Start Time: 06:55 Procedure Stop Time: 07:00 Location of Patient: PreOp Indication: Acute Post-Operative Pain, Analgesia, Dx/Pain Location (right shoulder pain ), Requested by Surgeon Sedation Type: Sedate with meaningful contact maintained Preparation: Sterile Prep Position: Supine Catheter: None Needle Types: Pajunk Needle Gauge: 21 Ultrasound used to visualize needle placement: Yes Ultrasound used to observe medication spread: Yes Injectate: 0.5% Ropivacaine (see comment for volume) (20ml with 4 mg decadron) Blood Aspirated: No Pain Paresthesia on Injection Noted: No Resistance on Injection: Normal Image Stored and Saved: Yes Events: Uneventful and Well Tolerated
[2023-08-31] MEDS ORDERED: bisacodyL 10 MG SUPP RECTAL PRN (09:27)
[2023-08-31] MEDS ORDERED: NALOXONE 0.4 MG/ML 1 ML VIAL IV PRN (09:27)
[2023-08-31] MEDS ORDERED: MAGNESIUM HYDROXIDE 2,400 MG/30 ML CUP PO PRN (09:27)
[2023-08-31] MEDS ORDERED: NA PHOS,M-B/NA PHOS,DI-BA 133 ML ENEMA RECTAL PRN (09:27)
[2023-08-31] MEDS ORDERED: ACETAMINOPHEN TAB 325 MG TAB PO PRN (09:27)
[2023-08-31] MEDS: fentaNYL (PF) 50 MCG/ML 2 ML AMP IV PRN (09:39)
[2023-08-31] MEDS: HYDROmorphone 1 MG/ML 1 ML SYRINGE IVP STA (10:02)
[2023-08-31] MEDS: HYDROmorphone 0.5 MG/0.5 ML SYRINGE IVP PRN (11:09)
--- NOTE | 2023-08-31 11:13 | XR ---
EXAMINATION TYPE: XR shoulder limited RT DATE OF EXAM: 08/31/2023 10:09 AM CLINICAL INDICATION:Female, 68 years old with history of Evaluation for Postop abnormality and alignm ent; [facility] COMPARISON: None TECHNIQUE: XR shoulder limited RT; examined in AP, internally rotated and scapular Y projections. FINDINGS: Shoulder arthroplasty with hardware intact. Subcutaneous lucencies compatible with recent surgery. No evidence for fracture. Hardware appears in tact The remaining portions of the visualized chest are unremarkable. IMPRESSION: Post shoulder arthroplasty, no evidence for immediate postop complication.
--- NOTE | 2023-08-31 11:17 | P.CONS ---
History of Present Illness - Reason for Consult Consult date: 08/31/23 Medical Management Requesting physician: Naresh Arroyo - History of Present Illness History of Presenting Illness: Patient is a very pleasant 68-year-old female with a past medical history of hypertension, hypothyroidism, type 2 diabetes mellitus,, GERD, depression and anxiety, and osteoarthritis with chronic pain. She is currently admitted under orthopedic surgery team and underwent elective right reverse total shoulder arthroplasty completed by Dr. Arroyo. We were consulted for medical management throughout hospitalization. Patient seen and fully evaluated upon arrival to room 479 from the OR. She is currently tolerating clear liquid diet and denies experiencing any postoperative nausea or vomiting. Patient does report nerve pain throughout ack of right arm radiating down into her fingers with reports of significant pain in right index finger. Patient sling is in place and repositioned at this time. RN was notified and patient being medicated for pain and ice packs to be placed. Patient currently denies having any headache, lightheadedness, dizziness, chest pain, palpitations, shortness of breath, or any other complaints. Movement and sensation in right hand intact. Review of systems: Pertinent positives and negatives as discussed in HPI, a complete review of systems was performed and all other systems are negative. Physical exam: Vital signs reviewed and stable. General: Nontoxic, no distress and appears stated age. Derm: Skin warm and dry, normal coloration for ethnicity. Head: Atraumatic, normocephalic and symmetric. Eyes: EOMs intact, no lid lag, and anicteric sclera Mouth: no lip lesions, mucus membranes moist Cardiovascular: regular rate and rhythm with normal S1S2, no murmur, positive posterior tibial pulses bilaterally, and cap refill < 2 seconds. Lungs: Respirations even, regular, and unlabored on room air. Lungs CTA bilaterally, no rhonchi, no rales, no wheezing, and no accessory muscle usage. Abdominal: soft, nontender to palpation, no guarding, no appreciable organomegaly Ext: No gross muscle atrophy, no edema, no contractures. Postoperative dressing in place and right arm in sling. Movement and sensation intact of right hand. Neuro: Speech clear, face symmetrical and CN II-XII grossly intact with no noted focal neuro deficits Psych: Alert and oriented to person, place, time, and situation. Appropriate and pleasant affect. Assessment and Plan of Care: Status post right total shoulder arthroplasty -Management per primary admitting orthopedic surgery team including pain management, wound/dressing management, DVT prophylaxis, weightbearing of right arm, and PT/OT. -DVT prophylaxis currently with aspirin 81 mg twice daily. Hypertension Patient to continue daily medication regimen with losartan 25 mg daily. Hypothyroidism Patient to continue daily medication regimen with levothyroxine 150 mcg daily. GERD Continue Pepcid 40 mg twice daily and PRN Carafate 1 g every 6 hours as needed for reflux/heartburn. Anxiety and depression Continue Cymbalta 60 mg twice daily and trazodone 100 mg nightly. Data and imaging reviewed: Vital signs reviewed. Blood pressure 112/65, heart rate 89, respiratory rate 18, temp 97.4 F, and SpO2 of 97% on 4 L. Blood glucose 104. Thank you for allowing us to participate in the care of this pleasant patient. Do not hesitate to contact us with questions. [facility] can [facility] all hours of the day at [phone] or via [employer]. Patient was seen independently by Nurse Practitioner. This document was prepared using [employer] dictation software. Please allow for errors in field agent while rare they do occur. Noel Gonzales NP rendered care for this patient independently, reviewed the findings and plan as documented in the note above. I did not physically speak with or examine the patient on this date. Past Medical History Past Medical History: GERD/Reflux, Hypertension, Osteoarthritis (OA), Thyroid Disorder Additional Past Medical History / Comment(s): prolapsed bladder-HAS PESSARY History of Any Multi-Drug Resistant Organisms: None Reported Past Surgical History: Adenoidectomy, Appendectomy, Joint Replacement, Tonsillectomy Additional Past Surgical History / Comment(s): right knee replacement 2000, COLONOSCOPY, Past Anesthesia/Blood Transfusion Reactions: No Reported Reaction Past Psychological History: No Psychological Hx Reported Smoking Status: Never smoker Past Alcohol Use History: Occasional Additional Past Alcohol Use History / Comment(s): ONLY SMOKED FOR A FEW MONTH AT AGE 18 Past Drug Use History: Marijuana Additional Drug Use History / Comment(s): MARIJUANA GUMMY AT HS FOR PAIN-AWARE TO HOLD AT LEAST 24 HOURS PRIOR TO PROCEDURE - Past Family History Father Family Medical History: Myocardial Infarction (NM) Mother Family Medical History: Myocardial Infarction (NM) Medications and Allergies Home Medications Medication Instructions Recorded Confirmed Type Famotidine 40 mg PO BID 11/17/17 08/25/23 History Levothyroxine Sodium [Synthroid] 150 mcg PO DAILY 11/17/17 08/25/23 History DULoxetine HCL [Cymbalta] 60 mg PO BID 02/04/21 08/25/23 History Sucralfate [Carafate] 1 gm PO Q6HR PRN 02/04/21 08/25/23 History Acetaminophen [Tylenol Extra 1,000 mg PO Q6HR PRN 08/25/23 08/25/23 History Strength] Calcium Carbonate/Vitamin D3 1 each PO HS 08/25/23 08/25/23 History [Calcium 600 mg-D3 10 Mcg (400 Iu)] Celecoxib [CeleBREX] 200 mg PO DAILY 08/25/23 08/25/23 History Cholecalciferol (Vitamin D3) 125 mcg PO HS 08/25/23 08/25/23 History [Vitamin D3 (125 MCG = 5,000 IU)] Gabapentin [Neurontin] 100 mg PO BID 08/25/23 08/25/23 History Gabapentin [Neurontin] 300 mg PO HS 08/25/23 08/25/23 History Losartan [Cozaar] 25 mg PO DAILY 08/25/23 08/25/23 History Magnesium 500 mg PO HS 08/25/23 08/25/23 History Semaglutide [Ozempic] 0.25 mg SQ WE 08/25/23 08/25/23 History Simponi Aria 1 dose IV DIRECTED 08/25/23 History Turmeric/Turmeric Root Extract 1 each PO HS 08/25/23 08/25/23 History [Turmeric 450-50 mg Capsule] Vitamin K2 [Vitamin K-2] 100 mcg PO HS 08/25/23 08/25/23 History traZODone HCL [Desyrel] 100 mg PO HS 08/25/23 08/25/23 History Allergies Allergy/AdvReac Type Severity Reaction Status Date / Time No Known Allergies Allergy Verified 08/25/23 14:21 Physical Exam Vitals: Vital Signs Temp Pulse Resp BP Pulse Ox 08/31/23 10:26 85 14 112/58 98 08/31/23 10:13 97.4 F L 90 17 112/65 97 08/31/23 10:10 90 20 105/56 97 08/31/23 09:55 82 16 103/55 99 08/31/23 09:40 86 16 124/55 95 08/31/23 09:25 94 20 128/63 98 08/31/23 07:10 89 16 133/62 97 08/31/23 06:29 97 F L 94 20 162/73 95 Intake and Output 08/30/23 08/31/23 08/31/23 22:59 06:59 14:59 Intake Total 400 1101 Output Total 100 Balance 400 1001 Intake: IV 400 1101 Output: Estimated Blood Loss 100 Other: Weight 98.9 kg 98.9 kg Results CBC & Chem 7: 09/01/23 07:04 09/01/23 07:04
[2023-08-31] MEDS ORDERED: diphenhydrAMINE 25 MG CAP PO PRN (12:20)
[2023-08-31] MEDS ORDERED: ONDANSETRON 4 MG/2 ML VIAL IVP PRN (12:20)
[2023-08-31] MEDS: HYDROcodone/APAP 7.5-325MG 1 EACH TAB PO PRN (13:39)
[2023-08-31] MEDS: GABAPENTIN 100 MG CAP PO SCH (13:39)
--- NOTE | 2023-08-31 16:21 | OP ---
OPERATIVE REPORT DATE OF SERVICE : 08/31/2023 CHARGE MASTER SPECIALIST: ANDRÉS Elise. PREOPERATIVE DIAGNOSIS: Right shoulder advanced osteoarthrosis. POSTOPERATIVE DIAGNOSIS: 1. Right shoulder advanced osteoarthrosis. 2. Right shoulder large full-thickness tear, supraspinatus. PROCEDURE PERFORMED: Right reverse total shoulder arthroplasty. ANESTHESIA: General endotracheal. ESTIMATED BLOOD LOSS: 100 mL. DRAINS: None. COMPLICATIONS: None apparent. DISPOSITION: Postanesthesia care unit. INDICATIONS: Nicol is a very pleasant 68-year-old female with longstanding right shoulder pain. Workup including x-rays revealed advanced osteoarthrosis of the right shoulder. AT this point, it is felt that she has failed conservative management. She would like to proceed with operative intervention. Risks of procedure were discussed with her in detail. These risks include but are not limited to risk of infection, nerve damage, bleeding, pain, instability in the shoulder, loosening of the implants, and deep infection. There is also small risk of deep vein thrombosis, which could lead to fatal pulmonary embolism. The patient understood these risks. All of her questions with regard to the risks of procedure were answered to her satisfaction. Appropriate informed consent was obtained. DESCRIPTION OF PROCEDURE: The patient was identified in preoperative holding area. Surgical site was marked by both the patient and myself. She was given 2 g of Ancef IV for prophylactic purposes. She was then transported to the operative suite. She was placed supine on the operating table. A general anesthetic was then administered and dosed per the Anesthesia Department without apparent complication. An examination under anesthesia of the right shoulder was then performed and findings were as noted. She had elevation to 120 degrees, external rotation at the side was to 20 degrees. The patient was then placed into the beach chair position well-padded in preparation for surgery. Great care was taken to ensure that her cervical spine was in neutral alignment, well-padded, and maintained that way throughout the operative procedure. Great care was also taken to ensure that the legs were appropriately padded as well. The patient's right upper extremity was then prepped and draped in usual sterile fashion. Standard surgical pause undertaken to ensure that we were operating the correct site and that appropriate preoperative antibiotics had been given. All staff in room were in agreement, and we proceeded. The acromion AC joint clavicle and coracoid were marked with a surgical pen. A planned incision starting at the level of the clavicle and extending distally over the deltopectoral interval approximately 1 cm lateral to the coracoid was marked with a surgical pen. The incision was then made with a 10-blade scalpel. Dissection was carried down sharply to the deltoid fascia. The deltopectoral interval was then identified at the level of clavicle. A small band retractor was then placed onto the proximal deltoid. I then released the deltoid fascia on the lateral aspect of the cephalic vein. The vein was protected and left in its bed medially. The cephalic vein was protected throughout the entire case. I then identified the clavipectoral fascia. This was incised proximally to the level of the coracoacromial ligament. The coracoacromial ligament was left intact. I then used my finger to spread the interval between the conjoint tendon and the subscapularis. I felt for the axillary nerve at this point, which was readily palpable. I then cleared the subacromial and subdeltoid spaces of bursal and scar tissue. I then utilized a brown retractor to hold the deltoid and expose the humeral head. I then proceeded with the release of the subscapularis in the anterior-inferior shoulder capsule. The rotator cuff was then inspected. She had a very large tear of the supraspinatus. The rotator interval was then identified. The course of the biceps tendon was also identified. I then released the rotator interval. This was released at the base of the coracoid and then out laterally. The subscapularis and the capsule released intratendinously. The subscapularis and capsule release extended distally in a lazy-S fashion approximately 1 cm medial to the biceps tendon. I then continued to release the capsule along the inferior neck in a vertical fashion to approximate the 6 o'clock position. Great care was taken to ensure the capsule was always visualized as it was released, as to avoid injuring the axillary nerve. I then brought a Mallory audio production engineer with the arm externally rotated and abducted. I continued to release the capsule inferomedially to 4 o'clock position. The inferior osteophytes were now removed as well. This was done with a rongeur. I then proceeded with preparation of the humerus. I removed all the goat's mg osteophytes. I then removed the subchondral plate from the superior aspect of the humeral head utilizing a large rongeur. I then used a starting reamer to gain access to the humeral canal. This was approximately 1 cm medial to the rotator cuff insertion, 1 cm posterior to the bicipital groove. I then prepared the humeral canal with hand reaming. I started with a 6 mm reamer, incrementally increased until firm resistance was encountered. This was at 13 mm. The reamer handle was then left in place. Then utilized a humeral resection guide, set at 30 degrees of retrotorsion. The cutting block was set at the insertion of the rotator cuff. I then proceeded to osteotomize the head with the oscillating saw. I then removed the resection guide and then completed the osteotomy. I then proceeded with trial stem placement. I broached up to a size 13. This was left in place. At this point, I did release the biceps tendon. This was tenotomized at the level of the superior labrum. A bone hook was then used to pull the humerus out laterally. I inspected the joint for any loose bodies. Again, she had a large supraspinatus tear. The arm was then placed in approximately 80 degrees of abduction and in slight flexion on the Mallory stand. The Bhattman retractor was then placed on the posterior glenoid rim. I then proceeded to remove the hypertrophic labrum to definitively identify the actual glenoid. I then proceeded with reverse shoulder arthroplasty. The mini base plate guide was then placed, flushed with the glenoid. The centering hole was then placed approximately 10 degrees of inferior tilt in the inferior central aspect of the glenoid. I then used the mini base plate reamer, minimal reaming was done as possible. Posterior superiorly there was area left unreamed as there was excessive wear placed. I then placed the small offset which was placed posterior superiorly and filled the void very nicely, and it fit flush with the glenoid. I then had the airline security representative open a Biomet mini base plate with a small offset. The offset was then rotated posterior superiorly. The real base plate was then impacted into the real glenoid. The starting pin was removed. I then proceeded with placement of the central screw. It measured 25 mm screw. A 25 mm central screw was then placed. She had excellent purchase of the bone. I was able to rotate the scapula through the screwdriver when it was firmly seated. I then proceeded with placement of peripheral locking screws. The inferior, anterior, and posterior screws were 15 mm screws and superior screw was a 20 mm screw. I then had the airline security representative open a 36 mm glenosphere. It was slightly offset inferiorly. The Terry taper was dried and the real glenosphere was then impacted onto the base plate. The Terry taper was tested, it was firmly seated. I then proceeded with trialing. We started with a standard tray, standard poly. It was a mildly difficult reduction. It was very stable throughout a full range of motion. There was no impingement noted. The conjoint tendon did not have any undue tension. The shoulder was then redislocated. I made a decision to proceed with the standard tray and standard polyethylene. All the humeral components were removed. The wound was thoroughly irrigated with sterile saline solution with antibiotic added via pulse lavage. We also used the IrriSept antiseptic solution at this time. I then had the airline security representative open a 13 mini stem, a standard tray and a standard poly for 36 mm glenosphere. The stem was then impacted into the humeral canal in approximately 30 degrees of retrotorsion. It was firmly seated. The Terry taper was dried and then the standard tray and standard poly were then impacted onto the real stem. The shoulder was again reduced. Again, it was a mildly difficult reduction. It was very stable throughout a range of motion. No impingement noted. I also felt for the axillary nerve at this point, which was readily palpable and uninjured. The wound was then again thoroughly irrigated. The remaining IrriSept solution was utilized. We placed approximately 500 mg of vancomycin powder deep. The deltopectoral interval was then reapproximated with 0 Vicryl interrupted suture. The subcutaneous tissue was thoroughly irrigated. The remaining 500 mg of vancomycin powder was then placed subcutaneously. The subcutaneous tissue was closed with 2-0 Vicryl interrupted suture and the skin was closed with a running 3-0 Quill suture. Dermabond was applied at the incision. Sterile dressing was applied, and the patient's right upper extremity was placed in a standard sling. All sponge and needle counts were deemed correct prior to closure. The patient tolerated the procedure without apparent complication. She was transferred to recovery room in stable condition. MMODL / IJN: [id number] /
[2023-08-31] MEDS ORDERED: DEXTROSE 50% SYRINGE 50 ML IVP PRN ×2 (16:42)
[2023-08-31] MEDS: INSULIN ASPART (NovoLOG) 100 UNIT/ML VIAL SQ SCH (17:42)
[2023-08-31] MEDS: SUCRALFATE 1 GM TAB PO PRN (18:13)
[2023-08-31] MEDS: DULoxetine HCL 60 MG CAPSULE.DR PO SCH (20:10)
[2023-08-31] MEDS: GABAPENTIN 300 MG CAP PO SCH (20:10)
[2023-08-31] MEDS: SENNOSIDES-DOCUSATE SODIUM 1 EACH TAB PO SCH (20:11)
[2023-08-31] MEDS: ASPIRIN 81 MG PO SCH (20:11)
[2023-08-31] MEDS: traZODone HCL 100 MG TAB PO SCH (20:11)
[2023-08-31] MEDS: FAMOTIDINE 20 MG TAB PO SCH (20:11)
[2023-08-31] MEDS: TURMERIC PO SCH (20:16)
[2023-08-31] MEDS: [UNRECOGNIZED DRUG - OTHER] PO SCH (20:16)
[2023-08-31] MEDS: TURMERIC ROOT EXTRACT PO SCH (20:16)
[2023-09-01] MEDS: HYDROcodone/APAP 7.5-325MG 1 EACH TAB PO PRN (03:41)
[2023-09-01] MEDS: LEVOTHYROXINE 75 MCG TAB PO SCH (05:55)
[2023-09-01] MEDS: MULTIVITAMINS, THERA 1 EACH TAB PO SCH (09:17)
[2023-09-01] MEDS: LOSARTAN 25 MG TAB PO SCH (09:17)
[2023-09-01 11:13] LABS: HCT 33.4 % (37.2-46.3); MCH 30.3 pg (27.0-32.0); MCHC 32.9 g/dL (32.0-37.0); Mean Platelet Volume 11.2 FL (9.5-12.2); NRBC Per 100 WBC 0 X 10*3/uL (0.00-0.01); Platelet Count 170 X 10*3/uL (140-440); RBC 3.63 X 10*6/uL (4.10-5.20); RDW 13.2 % (11.5-14.5); WBC 12.14 X 10*3/uL (4.50-10.00)
[2023-09-01 11:37] LABS: Blood Urea Nitrogen 11.2 mg/dL (9.0-27.0); Calcium 9.3 mg/dL (8.7-10.3); Chloride 106 mmol/L (96-109); Glucose 93 mg/dL (70-110); Potassium 4.2 mmol/L (3.5-5.5); Sodium 140 mmol/L (135-145)
[2023-09-01 11:42] LABS: Glucose,Whole Blood 93 mg/dL (70-110)
[2023-09-01 11:43] LABS: Basophils # (A) 0.06 X 10*3/uL (0.00-0.10); Basophils % (A) 0.5 %; Eosinophils # (A) 0.24 X 10*3/uL (0.04-0.35); Lymphocytes # (A) 2.83 X 10*3/uL (0.90-5.00); Lymphocytes % (A) 23.3 %; Monocytes # (A) 1.51 X 10*3/uL (0.20-1.00); Monocytes % (A) 12.4 %; Neutrophils # (A) 7.44 X 10*3/uL (1.80-7.70); Neutrophils % (A) 61.3 %; RBC Morphology Normal (Normal)
[2023-09-01] MEDS ORDERED: oxyCODONE-APAP 7.5-325MG 1 EACH TAB PO PRN (12:58)
--- NOTE | 2023-09-01 15:35 | P.PN ---
Subjective Progress Note Date: 09/01/23 Hospital course: Patient is a very pleasant 68-year-old female with a past medical history of hypertension, hypothyroidism, type 2 diabetes mellitus,, GERD, depression and anxiety, and osteoarthritis with chronic pain. She is currently admitted under orthopedic surgery team and underwent elective right reverse total shoulder arthroplasty completed by Dr. Arroyo. We were consulted for medical management throughout hospitalization. Physical exam: Patient seen and fully evaluated at bedside this morning. Patient reports experiencing significant postoperative pain throughout the night and morning. Patient expressing concerns of what she is going to do when she goes home. She denies having any postoperative nausea or vomiting, headache, lightheadedness, dizziness, chest pain, palpitations, or shortness of breath. Patient reports previous reported nerve pain shooting down into her fingers has resolved but is now just having a chronic throbbing pain in right shoulder. Vital signs reviewed and stable. General: Nontoxic, no distress and appears stated age. Derm: Skin warm and dry, normal coloration for ethnicity. Head: Atraumatic, normocephalic and symmetric. Eyes: EOMs intact, no lid lag, and anicteric sclera Mouth: no lip lesions, mucus membranes moist Cardiovascular: regular rate and rhythm with normal S1S2, no murmur, positive posterior tibial pulses bilaterally, and cap refill < 2 seconds. Lungs: Respirations even, regular, and unlabored on room air. Lungs CTA bilaterally, no rhonchi, no rales, no wheezing, and no accessory muscle usage. Abdominal: soft, nontender to palpation, no guarding, no appreciable organomegaly Ext: No gross muscle atrophy, no edema, no contractures. Postoperative dressing in place and right arm in sling. Movement and sensation intact of right hand. Neuro: Speech clear, face symmetrical and CN II-XII grossly intact with no noted focal neuro deficits Psych: Alert and oriented to person, place, time, and situation. Appropriate and pleasant affect. Assessment and Plan of Care: Status post right total shoulder arthroplasty Postoperative leukocytosis, expected and stable finding. Acute postoperative blood loss anemia, expected and stable finding -Management per primary admitting orthopedic surgery team including pain management, wound/dressing management, DVT prophylaxis, weightbearing of right arm, and PT/OT. -DVT prophylaxis currently with aspirin 81 mg twice daily. Hypertension Patient to continue daily medication regimen with losartan 25 mg daily. Hypothyroidism Patient to continue daily medication regimen with levothyroxine 150 mcg daily. GERD Continue Pepcid 40 mg twice daily and PRN Carafate 1 g every 6 hours as needed for reflux/heartburn. Anxiety and depression Continue Cymbalta 60 mg twice daily and trazodone 100 mg nightly. Data and imaging reviewed: Vital signs reviewed. Blood pressure 112/65, heart rate 89, respiratory rate 18, temp 97.4 F, and SpO2 of 97% on 4 L. Postoperative labs reviewed showing postoperative leukocytosis with WBC count of 12.14 and acute postoperative blood loss anemia with hemoglobin of 11.0 and preoperative hemoglobin of 13.7. BMP unremarkable. Blood glucose 93. Hemoglobin A1c 5.6%. And magnesium normal findings at 2.0. From a medical perspective, patient is medically optimized and cleared for discharge once pain is better controlled and she is cleared by primary admitting orthopedic surgery team. Thank you for allowing us to participate in the care of this pleasant patient. Do not hesitate to contact us with questions. Someone can be reached from the [facility] hospitalist group all hours of the day at [phone] or via [employer]. Patient was seen independently by Nurse Practitioner. This document was prepared using [employer] dictation software. Please allow for errors in director supply chain while rare they do occur. Noel Gonzales NP rendered care for this patient independently, reviewed the findings and plan as documented in the note above. I did not physically speak with or examine the patient on this date. Objective - Vital Signs Vital signs: Vital Signs Temp 98.2 F 09/01/23 07:38 Pulse 79 09/01/23 07:38 Resp 17 09/01/23 07:38 BP 149/70 09/01/23 07:38 Pulse Ox 97 09/01/23 07:38 FiO2 Intake & Output 08/31/23 09/01/23 09/01/23 18:59 06:59 18:59 Intake Total 1101 120 Output Total 100 Balance 1001 120 Weight 98.9 kg Intake: IV 1101 Oral 120 Output: Estimated Blood Loss 100 Other: Voiding Method Toilet # Voids 2 1 1 - Labs CBC & Chem 7: 09/01/23 07:04 09/01/23 07:04
[2023-09-01 16:50] LABS: Glucose,Whole Blood 92 mg/dL (70-110)
[2023-09-01 20:52] LABS: Glucose,Whole Blood 116 mg/dL (70-110)
[2023-09-01] MEDS: oxyCODONE-APAP 7.5-325MG 1 EACH TAB PO PRN (21:06)
--- NOTE | 2023-09-01 22:03 | P.PN ---
Subjective Progress Note Date: 09/01/23 Principal diagnosis: Reverse right TSA Patient is seen at bedside this morning. She is postop day #1 from reverse right total shoulder arthroplasty. She has pain at the surgical site as expected but denies any new complaints. She denies numbness, tingling or calf pain. Review of systems is negative for fever, chills, chest pain, shortness of breath or other Objective - Vital Signs Vital signs: Vital Signs Temp 97.6 F 09/01/23 19:55 Pulse 86 09/01/23 19:55 Resp 17 09/01/23 19:55 BP 169/82 09/01/23 19:55 Pulse Ox 97 09/01/23 19:55 FiO2 Intake & Output 09/01/23 09/01/23 09/02/23 06:59 18:59 06:59 Intake Total 120 Balance 120 Intake: Oral 120 Other: Voiding Method Toilet Toilet # Voids 1 1 - Exam Inspection reveals a benign surgical wound. There is no active bleeding or drainage. Neurovascular status is intact throughout the upper extremity with motor and sensation fully intact. Calves are soft and nontender. 2+ radial pulse and less than 2 second cap refill is present. - Constitutional General appearance: Present: no acute distress - Labs CBC & Chem 7: 09/01/23 07:04 09/01/23 07:04 Labs: Abnormal Lab Results - Last 24 Hours (Table) 09/01/23 09/01/23 Range/Units 07:04 20:51 WBC 12.14 H (4.50-10.00) X 10*3/uL RBC 3.63 L (4.10-5.20) X 10*6/uL Hgb 11.0 L (12.0-15.0) g/dL Hct 33.4 L (37.2-46.3) % Immature Gran # 0.06 H (0.00-0.04) X 10*3/uL Monocytes # 1.51 H (0.20-1.00) X 10*3/uL POC Glucose (mg/dL) 116 H (70-110) mg/dL Assessment and Plan (1) Osteoarthritis of right shoulder Narrative/Plan: She will continue with routine postop orthopedic protocol including pain management, wound care and medical management. Expect that she will transfer to home tomorrow Current Visit: Yes Status: Acute Priority: Medium Code(s): M19.011 - PRIMARY OSTEOARTHRITIS, RIGHT SHOULDER SNOMED Code(s): [id number] Time with Patient: Less than 30
[2023-09-02] MEDS: TEMAZEPAM 15 MG CAP PO PRN (00:55)
[2023-09-02 06:03] LABS: Glucose,Whole Blood 130 mg/dL (70-110)
[2023-09-02] MEDS: traMADol 50 MG TAB PO PRN (06:36)
[2023-09-02 07:47] VITALS: BP 108/68; PULSE 90; RESP 19; TEMP 98.1
--- NOTE | 2023-09-02 11:17 | P.DS ---
Providers Expected date of discharge: 09/02/23 Attending physician: Naresh Arroyo Consults: 08/31/23 09:27 Consult Physician Routine Consulting Provider: Aramis Kowalski Consult Reason/Comments: post op medical management Do you want consulting provider notified?: Yes Primary care physician: Celso Lemos - Discharge Diagnosis(es) (1) Osteoarthritis of right shoulder Patient was admitted to the OR on 09/02/23 to undergo a reverse right total shoulder arthroplasty. She had failed conservative measures as an outpatient and desired to proceed with elective surgery after given informed consent. She underwent the above procedure which she tolerated well without complication. Postoperative hospital course has remained without complication. On day of discharge she is afebrile, vital signs stable, labs within acceptable ranges, tolerating by mouth meds and diet, voiding without difficulty, positive flatus, denies abdominal pain or calf pain, pain is controlled on oral pain medication and has no new complaints. Wound is benign, neurovascular status is intact, calves are soft and nontender, abdomen soft and nontender. Review of systems is negative for numbness, tingling, fever, chills, chest pain, shortness of breath, nausea, vomiting, dizziness, headaches, slurred speech or other. Current Visit: Yes Status: Acute Priority: Medium Procedures: Reverse right TSA Patient Condition at Discharge: Good Plan - Discharge Summary Discharge Rx Participant: Yes New Discharge Prescriptions: New Docusate [Colace] 100 mg PO BID #60 capsule Doxycycline Hyclate 100 mg PO BID #10 tab oxyCODONE-APAP 7.5-325MG [Percocet 7.5-325 mg] 1 tab PO Q4HR PRN #42 tab PRN Reason: Pain Ondansetron [Zofran] 4 mg PO Q8HR PRN #21 tab PRN Reason: Nausea Continue Levothyroxine Sodium [Synthroid] 150 mcg PO DAILY Famotidine 40 mg PO BID Losartan [Cozaar] 25 mg PO DAILY traZODone HCL [Desyrel] 100 mg PO HS Turmeric/Turmeric Root Extract [Turmeric 450-50 mg Capsule] 1 each PO HS Calcium Carbonate/Vitamin D3 [Calcium 600 mg-D3 10 Mcg (400 Iu)] 1 each PO HS Acetaminophen [Tylenol Extra Strength] 1,000 mg PO Q6HR PRN PRN Reason: Pain DULoxetine HCL [Cymbalta] 60 mg PO BID Sucralfate [Carafate] 1 gm PO Q6HR PRN PRN Reason: Heartburn Cholecalciferol (Vitamin D3) [Vitamin D3 (125 MCG = 5,000 IU)] 125 mcg PO HS Gabapentin [Neurontin] 100 mg PO BID Gabapentin [Neurontin] 300 mg PO HS Simponi Aria 1 dose IV DIRECTED Semaglutide [Ozempic] 0.25 mg SQ WE Magnesium 500 mg PO HS No Action Celecoxib [CeleBREX] 200 mg PO DAILY Vitamin K2 [Vitamin K-2] 100 mcg PO HS Discharge Medication List Famotidine 40 mg PO BID 11/17/17 [History] Levothyroxine Sodium [Synthroid] 150 mcg PO DAILY 11/17/17 [History] DULoxetine HCL [Cymbalta] 60 mg PO BID 02/04/21 [History] Sucralfate [Carafate] 1 gm PO Q6HR PRN 02/04/21 [History] Acetaminophen [Tylenol Extra Strength] 1,000 mg PO Q6HR PRN 08/25/23 [History] Calcium Carbonate/Vitamin D3 [Calcium 600 mg-D3 10 Mcg (400 Iu)] 1 each PO HS 08/25/23 [History] Celecoxib [CeleBREX] 200 mg PO DAILY 08/25/23 [History] Cholecalciferol (Vitamin D3) [Vitamin D3 (125 MCG = 5,000 IU)] 125 mcg PO HS 08/25/23 [History] Gabapentin [Neurontin] 100 mg PO BID 08/25/23 [History] Gabapentin [Neurontin] 300 mg PO HS 08/25/23 [History] Losartan [Cozaar] 25 mg PO DAILY 08/25/23 [History] Magnesium 500 mg PO HS 08/25/23 [History] Semaglutide [Ozempic] 0.25 mg SQ WE 08/25/23 [History] Simponi Aria 1 dose IV DIRECTED 08/25/23 [History] Turmeric/Turmeric Root Extract [Turmeric 450-50 mg Capsule] 1 each PO HS 08/25/23 [History] Vitamin K2 [Vitamin K-2] 100 mcg PO HS 08/25/23 [History] traZODone HCL [Desyrel] 100 mg PO HS 08/25/23 [History] Docusate [Colace] 100 mg PO BID #60 capsule 09/02/23 [Rx] Doxycycline Hyclate 100 mg PO BID #10 tab 09/02/23 [Rx] Ondansetron [Zofran] 4 mg PO Q8HR PRN #21 tab 09/02/23 [Rx] oxyCODONE-APAP 7.5-325MG [Percocet 7.5-325 mg] 1 tab PO Q4HR PRN #42 tab 09/02/23 [Rx] Follow up Appointment(s)/Referral(s): Naresh Arroyo MD [STAFF PHYSICIAN] - 10 Days Activity/Diet/Wound Care/Special Instructions: Maintain sling keep wound clean and dry take meds as directed may shower in 3 days if no bleeding non weightbearing f/u in office Discharge Disposition: HOME WITH HOME HEALTH SERVICES
[2023-09-02 11:35] LABS: Glucose,Whole Blood 105 mg/dL (70-110)
--- NOTE | 2023-09-02 13:47 | P.PN ---
Subjective Progress Note Date: 09/02/23 Hospital course: Patient is a very pleasant 68-year-old female with a past medical history of hypertension, hypothyroidism, type 2 diabetes mellitus,, GERD, depression and anxiety, and osteoarthritis with chronic pain. She is currently admitted under orthopedic surgery team and underwent elective right reverse total shoulder arthroplasty completed by Dr. Arroyo. We were consulted for medical management throughout hospitalization. Physical exam: Patient seen and fully evaluated at bedside this morning. She was resting comfortably in bed visiting with family at bedside. Patient reports pain much better controlled today and currently denies having any questions, needs, or complaints at this time. Vital signs reviewed and stable. General: Nontoxic, no distress and appears stated age. Derm: Skin warm and dry, normal coloration for ethnicity. Head: Atraumatic, normocephalic and symmetric. Eyes: EOMs intact, no lid lag, and anicteric sclera Mouth: no lip lesions, mucus membranes moist Cardiovascular: regular rate and rhythm with normal S1S2, no murmur, positive posterior tibial pulses bilaterally, and cap refill < 2 seconds. Lungs: Respirations even, regular, and unlabored on room air. Lungs CTA bilaterally, no rhonchi, no rales, no wheezing, and no accessory muscle usage. Abdominal: soft, nontender to palpation, no guarding, no appreciable organomegaly Ext: No gross muscle atrophy, no edema, no contractures. Postoperative dressing in place and right arm in sling. Movement and sensation intact of right hand. Neuro: Speech clear, face symmetrical and CN II-XII grossly intact with no noted focal neuro deficits Psych: Alert and oriented to person, place, time, and situation. Appropriate and pleasant affect. Assessment and Plan of Care: Status post right total shoulder arthroplasty Postoperative leukocytosis, expected and stable finding. Acute postoperative blood loss anemia, expected and stable finding -Management per primary admitting orthopedic surgery team including pain management, wound/dressing management, DVT prophylaxis, weightbearing of right arm, and PT/OT. -DVT prophylaxis currently with aspirin 81 mg twice daily. Hypertension Patient to continue daily medication regimen with losartan 25 mg daily. Hypothyroidism Patient to continue daily medication regimen with levothyroxine 150 mcg daily. GERD Continue Pepcid 40 mg twice daily and PRN Carafate 1 g every 6 hours as needed for reflux/heartburn. Anxiety and depression Continue Cymbalta 60 mg twice daily and trazodone 100 mg nightly. Data and imaging reviewed: Vital signs reviewed. Blood pressure 108/68, heart rate 90, respiratory rate 19, temp 98.1 F, and SpO2 of 94% on room air. Postoperative labs revealed postoperative leukocytosis with WBC count of 12.14 and acute postoperative blood loss anemia with hemoglobin of 11.0 and preoperative hemoglobin of 13.7. BMP unremarkable. Blood glucose 93. Hemoglobin A1c 5.6%. And magnesium normal findings at 2.0. From a medical perspective, patient is medically optimized and cleared for discharge once she is cleared by primary admitting orthopedic surgery team. Thank you for allowing us to participate in the care of this pleasant patient. Do not hesitate to contact us with questions. Someone can be reached from the [facility] hospitalist group all hours of the day at [phone] or via [employer]. Patient was seen independently by Nurse Practitioner. This document was prepared using [employer] dictation software. Please allow for errors in senior java ui developer while rare they do occur. Noel Gonzales NP rendered care for this patient independently, reviewed the findings and plan as documented in the note above. I did not physically speak with or examine the patient on this date. Objective - Vital Signs Vital signs: Vital Signs Temp 98.1 F 09/02/23 07:06 Pulse 90 09/02/23 07:06 Resp 19 09/02/23 07:06 BP 108/68 09/02/23 07:06 Pulse Ox 94 L 09/02/23 07:06 FiO2 Intake & Output 09/01/23 09/02/23 09/02/23 18:59 06:59 18:59 Other: Voiding Method Toilet Toilet # Voids 1 2 - Labs CBC & Chem 7: 09/01/23 07:04 09/01/23 07:04 Labs: Abnormal Lab Results - Last 24 Hours (Table) 09/01/23 09/01/23 09/02/23 Range/Units 07:04 20:51 06:02 WBC 12.14 H (4.50-10.00) X 10*3/uL RBC 3.63 L (4.10-5.20) X 10*6/uL Hgb 11.0 L (12.0-15.0) g/dL Hct 33.4 L (37.2-46.3) % Immature Gran # 0.06 H (0.00-0.04) X 10*3/uL Monocytes # 1.51 H (0.20-1.00) X 10*3/uL POC Glucose (mg/dL) 116 H 130 H (70-110) mg/dL
== END 2023-09-02 16:37 | disposition home health service (06) ==
LOC: OR 05:48 → 4SSUR 09:15 → OR 09-02 16:37
PROVIDERS: ATTEND Orthopaedic Surgery Sports Medicine
DX: M19.011 Primary osteoarthritis, right shoulder (principal); D62 Acute posthemorrhagic anemia; E03.9 Hypothyroidism, unspecified; E11.9 Type 2 diabetes mellitus without complications; F32.A Depression, unspecified; F41.9 Anxiety disorder, unspecified; G89.18 Other acute postprocedural pain; G89.29 Other chronic pain; I10 Essential (primary) hypertension; K21.9 Gastro-esophageal reflux disease without esophagitis; Z79.1 Long term (current) use of non-steroidal anti-inflammatories (NSAID); Z79.82 Long term (current) use of aspirin; Z79.890 Hormone replacement therapy; Z79.899 Other long term (current) drug therapy
CPT/HCPCS: 94760; 97116; 97162; 64415; 80048; 83735; 85025; 83036; 73020; 23473; C1776; J2250; J3370; J1100; J0690 ×3; J2405; J3010; J1170 ×3

== ENCOUNTER → 2024-07-24 | Outpatient (CLI) | payer MEDICARE, BC ==
--- NOTE | 2024-07-24 11:46 | MM ---
Reason for Exam: Screening (asymptomatic). Last mammogram was performed 1 year(s) and 1 month(s) ago. Patient History: Menarche at age 12. First Full-Term at age 30. Postmenopausal. Patient has history of breast feeding. [employer]. Estrogen for 1 year, 6 months, from age 37 until age 38. Risk Values: Cynthia 5 year model risk: 2.1%. NCI Lifetime model risk: 7.0%. Prior Study Comparison: 06/18/2021 Bilateral Screening Mammogram, [facility]. 06/21/2022 Bilateral MG screening mammo w CAD, [facility]. 06/23/2023 Bilateral MG screening mammo w CAD, [facility]. Tissue Density: There are scattered areas of fibroglandular density. Findings: Analyzed By CAD. Benign-appearing bilateral axillary lymph nodes are redemonstrated. There is no suspicious group of microcalcifications or new suspicious mass in either breast. Overall Assessment: Benign, BI-RAD 2 Management: Screening Mammogram of both breasts in 1 year. . Patient should continue monthly self-breast exams. A clinical breast exam by your physician is recommended on an annual basis. This exam should not preclude additional follow-up of suspicious palpable abnormalities. Note on Cynthia scores and lifetime risk: 1. A Cynthia score greater than 3% is considered moderate risk. If this is the case, consider specialist referral to assess eligibility for a risk reducing agent. 2. If overall lifetime risk for the development of breast cancer is 20% or higher, the patient may qualify for future screening with alternating mammogram and breast MRI. [facility], , 07/24/2024 11:42 AM. Electronically signed and approved by: Jovan Lofton M.D.
== END | disposition home or self-care (01) ==
LOC: RADMAMWWP 10:06
PROVIDERS: ATTEND Family Medicine
DX: Z12.31 Encounter for screening mammogram for malignant neoplasm of breast (principal); R92.323 Mammographic fibroglandular density, bilateral breasts; Z78.0 Asymptomatic menopausal state
CPT/HCPCS: 77063; 77067